=== PATIENT | female | born 1995 | race Caucasian/White ===

== ENCOUNTER 2016-12-20 19:19 | Emergency (ER) | payer MEDICAID ==
[2016-12-20 19:41] VITALS: BP 135/57
--- NOTE | 2016-12-20 20:30 | EDM.PDOC ---
ED HPI GENERAL MEDICAL PROBLEM - General Chief Complaint: ENT Problem Stated Complaint: SINUS PRESSURE Time Seen by Provider: 12/20/16 20:20 Source of Information: Reports: Patient History Limitations: Reports: No Limitations - History of Present Illness INITIAL COMMENTS - FREE TEXT/NARRATIVE: Franchesca is a 21 year old female who presents to the ED today with c/o sinus pressure, congestion and ear pressure since yesterday. Patient has been taking Claritin and Ibuprofen with minimal relief. Patient denies any fever/vomiting/ diarrhea. Duration: Day(s): (2) Improves with: Reports: None Worsens with: Reports: None - Related Data Allergies Allergy/AdvReac Type Severity Reaction Status Date / Time Penicillins Allergy Hives Verified 12/20/16 19:37 Home Meds: Home Meds Loratadine/Pseudoephedrine [Claritin-D 12 Hour] 1 tab PO DAILY 12/20/16 [History ] Past Medical History - Past Health History Medical/Surgical History: Denies Medical/Surgical History Gastrointestinal History: Reports: Gastritis Other Gastrointestinal History: Abdominal pain in past - Infectious Disease History Infectious Disease History: Reports: Chicken Pox - Past Surgical History Musculoskeletal Surgical History: Reports: Other (See Below) Social & Family History - Family History Cardiac: Reports: Arrhythmia, Blood Clots/VTE/DVT, Bypass, CAD, Heart Failure, High Cholesterol, Hypertension, Stent, Other (See Below) Other Cardiac Family History: Factor V Oncologic: Reports: Lung - Tobacco Use Smoking Status *Q: Current Every Day Smoker Years of Tobacco use: 4 Packs/Tins Daily: 0.5 Used Tobacco, but Quit: No Second Hand Smoke Exposure: Yes - Caffeine Use Caffeine Use: Reports: Energy Drinks Caffeine Use Comment: 2 per day - Alcohol Use Days Per Week of Alcohol Use: 0 - Recreational Drug Use Recreational Drug Use: No ED ROS ENT - Review of Systems Review Of Systems: ROS reveals no pertinent complaints other than HPI. ED EXAM, ENT - Physical Exam Exam: See Below Exam Limited By: No Limitations General Appearance: Alert, WD/WN, No Apparent Distress Eye Exam: Bilateral Eye: EOMI, PERRL Ears: Normal External Exam, Normal Canal, Normal TMs Nose: Normal Inspection, Other (maxillary and frontal sinus tenderness on exam bilaterally) Mouth/Throat: Normal Inspection, Normal Oropharynx Head: Atraumatic Neck: Lymphadenopathy (L) Respiratory/Chest: No Respiratory Distress, Lungs Clear Cardiovascular: Normal Peripheral Pulses, Regular Rate, Rhythm, No Edema, No Murmur GI/Abdominal: Normal Bowel Sounds, Soft, Non-Tender Neurological: Alert, Oriented, CN II-XII Intact Psychiatric: Normal Affect, Normal Mood Skin: Warm, Dry Course - Vital Signs Text/Narrative:: Franchesca is an otherwise healthy 21 year old female who presents to the ED today with c/o sinus pressure/congestion/ear pressure since yesterday. Please refer to HPI and focused exam. Patient on exam is well hydrated, she is non-toxic appearing. Patient is in no acute distress. Patient has been taking Claritin and ibuprofen with minimal relief. I discussed my findings and exam with patient. I encouraged patient to continue with Ibuprofen and Claritin, I will start her on Flonase for the next week. I encouraged supportive care at home including rest and hydration. Patient can follow up with PCP in one week if symptoms have not improved. Reasons to return to the ED were discussed. Patient agreeable to plan of care and was discharged in stable condition. Last Recorded V/S: Last Vital Signs Temp 36.6 C 12/20/16 19:39 Pulse 80 12/20/16 19:39 Resp 14 12/20/16 19:39 BP 135/57 L 12/20/16 19:39 Pulse Ox 99 12/20/16 19:39 Departure - Departure Time of Disposition: 21:00 Disposition: Home, Self-Care 01 Condition: good Clinical Impression: Upper respiratory infection Qualifiers: URI type: unspecified viral URI Qualified Code(s): J06.9 - Acute upper respiratory infection, unspecified - Discharge Information Instructions: Upper Respiratory Infection, Adult, [id number] Referrals: Effie Randhawa CNM [Primary Care Provider] - Forms: ED Department Discharge Additional Instructions: Franchesca, please continue taking Claritin daily as well as Ibuprofen for your symptoms. I have prescribed you Flonase which should help with your symptoms as well. Get some rest and stay well hydrated. If your sinus pressure/ symptoms persist for greater than 10 days you may need antibiotic. Take care and I hope you feel better soon.
== END 2016-12-20 20:42 | disposition home or self-care (01) ==
LOC: JP.ED 19:19
DX: J06.9 Acute upper respiratory infection, unspecified (principal); F17.210 Nicotine dependence, cigarettes, uncomplicated; Z88.0 Allergy status to penicillin; Z79.899 Other long term (current) drug therapy
CPT/HCPCS: 99283